=== PATIENT | female | born 1985 | race Caucasian/White ===

== ENCOUNTER 2019-05-22 10:09 | Emergency (ER) | payer OTHER ==
--- NOTE | 2019-05-22 10:57 | UC ---
Abdominal Pain Female HPI - HPI Summary HPI Summary: 33-year-old female who has had right-sided abdominal pain since Wednesday. She has some nausea today. She denies any fever or chills. She states she does have an appetite. She states the abdominal pain has worsened since Wednesday. She denies any urinary symptoms and no abnormal vaginal discharge or pelvic pain. - History of Current Complaint Chief Complaint: UCAbdominalPain Stated Complaint: PAIN IN RIGHT SIDE Time Seen by Provider: 05/22/19 10:52 Hx Obtained From: Patient Hx Last Menstrual Period: 05/08/19 ?: No Onset/Duration: Gradual Onset Timing: Constant Severity Initially: Mild Severity Currently: Moderate Pain Intensity: 4 Location: Discrete At: RLQ - Also right mid abdomen. Radiates: No Character: Unable to describe - Patient is not able to replicate the pain with movement Aggravating Factor(s): Nothing Alleviating Factor(s): Nothing Associated Signs and Symptoms: Positive: Nausea. Negative: Fever, Back Pain, Urinary Symptoms, Vaginal Discharge, Vomiting, Diarrhea Allergies/Adverse Reactions: Allergies Allergy/AdvReac Type Severity Reaction Status Date / Time latex Allergy Rash Verified 05/22/19 10:32 Home Medications: Home Medications NK [No Home Medications Reported] 05/22/19 [History Confirmed 05/22/19] PMH/Surg Hx/FS Hx/Imm Hx Previously Healthy: Yes - Surgical History Surgical History: None - Family History Known Family History: Positive: Non-Contributory - Social History Alcohol Use: None Substance Use Type: None Smoking Status (MU): Never Smoked Tobacco Review of Systems All Other Systems Reviewed And Are Negative: Yes Gastrointestinal: Positive: Abdominal Pain - Right mid abdominal and right lower quadrant abdominal pain., Nausea Genitourinary: Positive: Negative Is Patient Immunocompromised?: No Physical Exam Triage Information Reviewed: Yes Appearance: Well-Appearing, No Pain Distress, Well-Nourished Vital Signs: Initial Vital Signs Temp 98.2 F 05/22/19 10:29 Pulse 82 05/22/19 10:29 Resp 15 05/22/19 10:29 BP 111/63 05/22/19 10:29 Pulse Ox 100 05/22/19 10:29 Vital Signs Reviewed: Yes Eyes: Positive: Conjunctiva Clear ENT: Positive: Pharynx normal, TMs normal, Uvula midline Neck: Positive: Supple, Nontender, No Lymphadenopathy Respiratory: Positive: Lungs clear, Normal breath sounds, No respiratory distress, No accessory muscle use Cardiovascular: Positive: RRR, No Murmur, Pulses Normal, Brisk Capillary Refill Abdomen Description: Positive: No Organomegaly, Soft, Guarding. Negative: CVA Tenderness (R), CVA Tenderness (L), Distended, Hepatomegaly, Splenomegaly - Patient is exquisitely tender in the right mid abdomen and right lower quadrant with mild guarding. No rebound. Bowel Sounds: Positive: Present Musculoskeletal Exam: Normal Neurological Exam: Normal Psychological Exam: Normal Skin Exam: Normal Abd Pain Female Course/Dx - Course Course Of Treatment: Patient is comfortable here and she actually moves easily in the room and on the exam table. Because of the history of the abdominal pain worsening since Wednesday and nausea I'm advising her to follow-up in the emergency room for further treatment and lab work. The patient is agreeable to this plan of action. Urinalysis was negative, urine test was negative. - Differential Dx/Diagnosis Provider Diagnosis: Abdominal pain Discharge ED - Sign-Out/Discharge Documenting (check all that apply): Patient Departure All imaging exams completed and their final reports reviewed: No Studies - Discharge Plan Condition: Fair Disposition: HOME-RECOMMEND TO ED Referrals: No Primary Care Phys,NOPCP [Primary Care Provider] - Additional Instructions: After the evaluation by the nurse practitioner, it is recommended that you go to the emergency room for further evaluation of the abdominal pain where you should receive additional testing that can be completed in the emergency department. It is recommended that you go directly to the emergency department. This evaluation may include blood work or imaging. This testing will be directed and decided by the provider that evaluates you within the emergency department. If pain becomes worse, you feel lightheaded or you develop uncontrolled vomiting, or have any other concerns while you are driving to the emergency room, please pulley man and call 911. - Billing Disposition and Condition Condition: FAIR Disposition: Home-Recommend to ED
== END 2019-05-22 11:28 | disposition home health service (06) ==
LOC: UCCORT 10:09
DX: R10.31 Right lower quadrant pain (principal); Z91.040 Latex allergy status
CPT/HCPCS: 81003; 84702; 99202; G0463